=== PATIENT | female | born 2000 | race Caucasian/White ===

== ENCOUNTER 2019-07-06 12:09 | Emergency (ER) | payer BC ==
[~2019-07-06] VITALS: Ht 165.1 cm; Wt 72.7 kg
[2019-07-06] MEDS ORDERED: ADDERALL20 MG PO (12:40)
[2019-07-06 12:43] LABS: COLLECTION METHOD CLEAN CATCH
[2019-07-06 13:01] LABS: MUCOUS Present /lpf; PH 5 (5-8); URINE APPEARANCE Cloudy; URINE BACTERIA None Seen /hpf; URINE BILIRUBIN Negative (NEGATIVE); URINE BLOOD 3+ (NEGATIVE); URINE COLOR Yellow; URINE GLUCOSE Negative (NEGATIVE); URINE KETONE Negative (NEGATIVE); URINE LEUKOCYTE ESTERASE Trace (NEGATIVE); URINE NITRATE Negative (NEGATIVE); URINE PROTEIN(semi-quant) 2+ (NEGATIVE); URINE RBC >50 /hpf; URINE UROBILINOGEN Negative (NEGATIVE)
[2019-07-06] MEDS ORDERED: FLAGYL500 MG PO (14:08)
[2019-07-06] MEDS ORDERED: CEPHALEXIN500 M1 PO (14:08)
[2019-07-06 16:50] VITALS: BP 113/76; PULSE 86; TEMP 98.4
== END 2019-07-06 16:50 | disposition home or self-care (01) ==
LOC: COL.ER 12:09
PROVIDERS: Physician Assistant
DX: N30.00 Acute cystitis without hematuria (principal); N76.0 Acute vaginitis; F90.9 Attention-deficit hyperactivity disorder, unspecified type; F17.290 Nicotine dependence, other tobacco product, uncomplicated; B96.89 Other specified bacterial agents as the cause of diseases classified elsewhere; Z97.5 Presence of (intrauterine) contraceptive device
CPT/HCPCS: J0696